=== PATIENT | female | born 1955 | race Caucasian/White ===

== ENCOUNTER → 2016-06-23 | Outpatient (CLI) | payer BC | END | disposition home or self-care (01) | LOC: PETCFH 10:38 | PROVIDERS: ATTEND Nurse Practitioner Primary Care | DX: E05.90 Thyrotoxicosis, unspecified without thyrotoxic crisis or storm (principal) | CPT/HCPCS: 78013; A9516 ==

== ENCOUNTER → 2018-05-25 | Outpatient (CLI) | payer OTHER | END | disposition home or self-care (01) | LOC: CFH 10:47 | PROVIDERS: ATTEND Nurse Practitioner Primary Care | DX: Z13.820 Encounter for screening for osteoporosis (principal); Z13.220 Encounter for screening for lipoid disorders; E55.9 Vitamin D deficiency, unspecified; E78.2 Mixed hyperlipidemia; E05.90 Thyrotoxicosis, unspecified without thyrotoxic crisis or storm; I10 Essential (primary) hypertension; K58.0 Irritable bowel syndrome with diarrhea; R53.83 Other fatigue; R01.1 Cardiac murmur, unspecified; Z79.899 Other long term (current) drug therapy | CPT/HCPCS: 77080 ==

== ENCOUNTER 2020-01-17 06:54 | Emergency (ER) | payer MEDICARE, OTHER ==
[~2020-01-17] VITALS: Ht 167.6 cm; Wt 86.0 kg
[2020-01-17 07:58] LABS: BASOPHILS % (AUTO) 0 % (0-1); EOSINOPHILS % (AUTO) 2 % (1-7); LYMPHOCYTES % (AUTO) 21 % (22-44); MEAN CORPUSCULAR HEMOGLOBIN 29.5 pg (27.0-34.8); MEAN PLATELET VOLUME 7.7 fL (7.4-10.4); MONOCYTES % (AUTO) 5 % (2-9); NEUTROPHILS % (AUTO) 72 % (42-75); PLATELET COUNT 286 x10^3/uL (130-400); RED BLOOD COUNT 5.01 x10^6/uL (3.82-5.3); RED CELL DISTRIBUTION WIDTH 13.1 % (9.6-15.2)
[2020-01-17 08:06] LABS: ALBUMIN 3.7 g/dL (3.4-5.0); ANION GAP 4 mmol/L (5-15); CHLORIDE 110 mmol/L (98-107)
[2020-01-17 08:12] LABS: MD NO
[2020-01-17 08:18] LABS: ALANINE AMINOTRANSFERASE 15 U/L (12-78); ALKALINE PHOSPHATASE 103 U/L (45-117); BILIRUBIN,TOTAL 0.9 mg/dL (0.2-1.0); TOTAL PROTEIN 7.4 g/dL (6.4-8.2); TROPONIN I < 0.015 ng/mL (0.000-0.045)
--- NOTE | 2020-01-17 08:44 | NUR ---
Dorian () [phone] Call this number upon patient discharge for pickup
--- NOTE | 2020-01-17 10:06 | NUR ---
PT IN BED, VSS, NO COMPLAINTS OF PAIN, ORTHOS NEGITIVE, NO CHANGE
[2020-01-17 10:51] VITALS: BP 168/62
== END 2020-01-17 11:46 | disposition home or self-care (01) ==
LOC: ED 08:30
DX: R00.2 Palpitations (principal); R42 Dizziness and giddiness; R06.02 Shortness of breath; J45.909 Unspecified asthma, uncomplicated; E78.5 Hyperlipidemia, unspecified; I10 Essential (primary) hypertension; Z90.89 Acquired absence of other organs; Z90.49 Acquired absence of other specified parts of digestive tract; Z88.8 Allergy status to other drugs, medicaments and biological substances; Z88.6 Allergy status to analgesic agent
CPT/HCPCS: 36415; 71045; 80053; 83735; 84443; 84484; 85025; 93005; 99285

== ENCOUNTER 2020-04-15 07:53 | Emergency (ER) | payer MEDICARE, OTHER ==
[~2020-04-15] VITALS: Ht 167.6 cm; Wt 80.6 kg
[2020-04-15 08:35] LABS: BASOPHILS % (AUTO) 0 % (0-1); EOSINOPHILS % (AUTO) 2 % (1-7); LYMPHOCYTES % (AUTO) 25 % (22-44); MEAN CORPUSCULAR HEMOGLOBIN 30.3 pg (27.0-34.8); MEAN CORPUSCULAR HGB CONC 34.1 g/dL (32.4-35.8); MEAN PLATELET VOLUME 8.1 fL (7.4-10.4); MONOCYTES % (AUTO) 6 % (2-9); NEUTROPHILS % (AUTO) 68 % (42-75); PLATELET COUNT 281 x10^3/uL (130-400); RED BLOOD COUNT 5.04 x10^6/uL (3.82-5.3); RED CELL DISTRIBUTION WIDTH 13.1 % (9.6-15.2)
[2020-04-15 08:36] LABS: MD NO
[2020-04-15 08:45] LABS: ALBUMIN 3.7 g/dL (3.4-5.0); ANION GAP 7 mmol/L (5-15); CHLORIDE 111 mmol/L (98-107)
--- NOTE | 2020-04-15 08:45 | NUR ---
Pt ambulatory to bathroom for UA, steady gait.
[2020-04-15 08:51] LABS: ALANINE AMINOTRANSFERASE 16 U/L (12-78); ALKALINE PHOSPHATASE 93 U/L (45-117); BILIRUBIN,TOTAL 0.7 mg/dL (0.2-1.0); TOTAL PROTEIN 7.2 g/dL (6.4-8.2)
[2020-04-15 09:42] LABS: MICROSCOPIC AUTO
[2020-04-15 10:01] VITALS: BP 116/68
== END 2020-04-15 10:22 | disposition home or self-care (01) ==
LOC: ED 08:50
DX: N30.00 Acute cystitis without hematuria (principal); I10 Essential (primary) hypertension; E78.00 Pure hypercholesterolemia, unspecified; Z90.89 Acquired absence of other organs
CPT/HCPCS: 36415; 80053; 81001; 85025; 87086; 99283

== ENCOUNTER → 2020-04-24 | Outpatient (CLI) | payer MEDICARE, OTHER | END | disposition home or self-care (01) | LOC: CFH 16:18 | PROVIDERS: ATTEND Internal Medicine Cardiovascular Disease | DX: I10 Essential (primary) hypertension (principal) | CPT/HCPCS: 93306 ==

== ENCOUNTER → 2020-06-19 | Outpatient (CLI) | payer MEDICARE, OTHER ==
[~2020-06-19] MED LIST: GADOTERATE 10 MMOL/20ML SYR ONE
== END | disposition home or self-care (01) ==
LOC: RAD 13:44
PROVIDERS: ATTEND Specialist
DX: R42 Dizziness and giddiness (principal); R43.1 Parosmia
CPT/HCPCS: 70553; A9575

== ENCOUNTER → 2020-07-08 | Outpatient (CLI) | payer MEDICARE, OTHER | END | disposition home or self-care (01) | LOC: CFH 10:03 | PROVIDERS: ATTEND Nurse Practitioner Primary Care | DX: Z12.31 Encounter for screening mammogram for malignant neoplasm of breast (principal) | CPT/HCPCS: 77067 ==